=== PATIENT | female | born 1990 | race Caucasian/White ===

== ENCOUNTER 2017-02-07 03:46 | Emergency (ER) | payer OTHER ==
[2017-02-07] MEDS ORDERED: LACTATED RINGERS 1,000 ML IV ONE ×2 (04:00→04:01)
[2017-02-07] MEDS ORDERED: NORMAL SALINE 500 ML IV.SOLN IV ONE (04:00)
--- NOTE | 2017-02-07 04:16 | ED Physician Documentation ---
General Adult - HISTORIAN Historian: patient - HPI Chief Complaint: General Adult Onset: hours (2200) Timing: worse Further Comments: yes (26 year old female patient present in labor. 40 weeks, + 2 days, MIRANDA 02/05/2017; G3, P2, Ab0, vaginal births, contractions 3 min apart, water intact, OB: Dr. Cooper in [place]) - ROS CONST: no problems EYES/ENT: none CVS/RESP: none GI/: none MS/SKIN/LYMPH: none NEURO/PSYCH: denies: headache - PAST HX Past History: none Other History: none Immunizations: UTD Allergies/Adverse Reactions: Allergies Allergy/AdvReac Type Severity Reaction Status Date / Time No Known Allergies Allergy Verified 07/30/13 14:41 Home Medications: Ambulatory Orders Medication Instructions Recorded Amitriptyline HCl [Elavil] 10 mg PO 01/01/13 - SOCIAL HX Smoking History: non-smoker - FAMILY HX Family History: No - VITAL SIGNS Vital Signs: Vital Signs Temp Pulse Resp BP Pulse Ox 101/57 07/30/13 16:45 - REVIEWED ASSESSMENTS Nursing Assessment Reviewed: Yes Vitals Reviewed: Yes Progress - Progress Progress: 0349 Contraction 0350 Cervical check - complete effacement, dilation 6-7, call to Dr Azevedo for ride along, EMS called. [address] [facility]aria at [facility] 0400 Contractions 3 minutes apart, duration 19-32 seconds, strong; no urge to push at present 0403 Cervical check - dilation 7-8, station +[address] Azevedo at bedside. ED Results Lab/Radiology - Orders Orders: ED Orders Category Date Time Status Lactated Ringers [Ringers, Lactated] 1,000 ml Med 02/07/17 04:01 Discontinued IV .STK-MED General Adult Physical Exam - PHYSICAL EXAM GENERAL APPEARANCE: severe distress EENT: eye inspection normal, MARIA A RESPIRATORY: no resp distress, chest non-tender, breath sounds normal CVS: reg rate & rhythm, heart sounds normal, equal pulses, no murmur, no gallop , PMI nml, no JVD, no friction rub, 24 ABDOMEN: soft, no organomegaly, normal bowel sounds, no abdominal bruit, no distension, other (FHT 124) SKIN: normal color, warm/dry, NR, INT, PAL, DR EXTREMITIES: non-tender, normal range of motion, no evidence of injury, no edema , J, [employer] SAL[employer] REPRESENTATIVE NEURO: oriented X3, CN's nml as tested, motor nml, sensation nml, mood/affect nml Discharge Clincal Impression: Active labor at term Home Medications: Ambulatory Orders Amitriptyline HCl [Elavil] 10 mg PO 01/01/13 Condition: Stable Disposition: 02 XFER SHT-TRM HOSP Decision to Admit: NO Decision Time: 04:05
[2017-02-07 05:13] VITALS: BP 121/47
== END 2017-02-07 04:05 | disposition short-term general hospital (02) ==
LOC: ED 03:46
DX: Z34.83 Encounter for supervision of other normal pregnancy, third trimester (principal)
CPT/HCPCS: 96360; 99283; 99284; J7120; S1016